=== PATIENT | male | born 1950 | race Caucasian/White ===

== ENCOUNTER → 2017-04-30 | Outpatient (CLI) | payer MEDICARE ==
[~2017-04-30] VITALS: Ht 170.2 cm; Wt 93.0 kg
[~2017-04-30] MED LIST: CATHETER FLUSH 10 ML SYR IV PRN; DZPM2T; HYDROCODONE/APAP; IBP200T; [UNRECOGNIZED DRUG - CODE]
== END ==
LOC: CARD 06:45
PROVIDERS: ATTEND Internal Medicine
DX: R07.9 Chest pain, unspecified (principal)

== ENCOUNTER → 2017-05-06 | Outpatient (CLI) | payer MEDICARE ==
[~2017-05-06] VITALS: Ht 170.2 cm; Wt 93.0 kg
[2017-05-06 08:14] VITALS: BP 148/77
--- NOTE | 2017-05-06 22:06 | STRESS TEST ---
DATE OF SERVICE: 05/06/2017 NUCLEAR MYOVIEW STRESS TEST REFERRING PHYSICIAN: Leanne Buitrago DO SUMMARY: The patient was injected with 10.35 mCi of technetium-99 Myoview and the resting images were obtained. With peak stress level, a 30.9 mCi of technetium-99 Myoview were injected and the stress images were acquired. The resting and stressed images were reviewed and compared in the short axis, horizontal long axis and vertical long axis views. Review of the images showed diaphragmatic attenuation with mild decreased uptake at the mid to apical inferior wall with no significant reversibility. SSS is 0. TID value is 0.93. On the gated images, the left ventricle appeared to be normal size with normal contractility. Calculated ejection fraction 54%. CONCLUSION: 1. Diaphragmatic attenuation with typical male pattern. No significant ischemia was noted. 2. Normal left ventricular size with normal contractility. Calculated ejection fraction 54%. 3. Test was supervised by Dr. Leanne Buitrago. Job ID: [id number] DocumentID: [id number] Dictated Date: 05/06/2017 14:18:52 Sales And Marketing Agent Date: 05/06/2017 17:41:06 Dictated By: ANUJA KNIGHT MD
== END ==
LOC: CARD 06:42
PROVIDERS: ATTEND Internal Medicine
DX: R07.9 Chest pain, unspecified (principal)
CPT/HCPCS: 78452; 93017

== ENCOUNTER → 2017-05-21 | Outpatient (CLI) | payer MEDICARE ==
[~2017-05-21] MED LIST changes: -CATHETER FLUSH 10 ML SYR IV PRN
== END ==
LOC: CARD 10:49
PROVIDERS: ATTEND Internal Medicine
DX: R07.9 Chest pain, unspecified (principal)
CPT/HCPCS: 93306

== ENCOUNTER → 2018-04-22 | Outpatient (CLI) | payer MEDICARE, OTHER ==
[2018-04-22 07:02] LABS: BASOPHILS % (AUTO) 0 % (0-10); EOSINOPHILS # (AUTO) 0.2 10^3/uL (0.0-0.3); EOSINOPHILS % (AUTO) 4 % (0-10); HEMATOCRIT 48 % (40-54); HEMOGLOBIN 17.1 G/DL (13.3-17.7); LYMPHOCYTES # (AUTO) 1.3 X 10^3 (1.0-4.0); LYMPHOCYTES % (AUTO) 21 % (12-44); MEAN CORPUSCULAR HEMOGLOBIN 32 PG (25-34); MEAN CORPUSCULAR HGB CONC 36 G/DL (32-36); MEAN CORPUSCULAR VOLUME 90 FL (80-99); MEAN PLATELET VOLUME 9.4 FL (7.4-10.4); MONOCYTES # (AUTO) 0.5 X 10^3 (0.0-1.0); MONOCYTES % (AUTO) 8 % (0-12); NEUTROPHILS # (AUTO) 4.2 X 10^3 (1.8-7.8); NEUTROPHILS % (AUTO) 67 % (42-75); PLATELET COUNT 189 10^3/uL (130-400); RED BLOOD COUNT 5.33 10^6/uL (4.35-5.85); RED CELL DISTRIBUTION WIDTH 12.6 % (10.0-14.5); WHITE BLOOD COUNT 6.2 10^3/uL (4.3-11.0)
[2018-04-22 07:04] LABS: BILIRUBIN,URINE NEGATIVE (NEGATIVE); CLARITY,URINE CLEAR; COLOR,URINE YELLOW; GLUCOSE, URINE (UA) NEGATIVE (NEGATIVE); KETONES,URINE NEGATIVE (NEGATIVE); LEUKOCYTE ESTERASE ,URINE NEGATIVE (NEGATIVE); NITRITE,URINE NEGATIVE (NEGATIVE); PH,URINE 5 (5-9); PROTEIN,URINE NEGATIVE (NEGATIVE); UROBILINOGEN,URINE NORMAL (NORMAL)
[2018-04-22 07:26] LABS: ALANINE AMINOTRANSFERASE 21 U/L (0-55); ALBUMIN 4.1 GM/DL (3.2-4.5); ALKALINE PHOSPHATASE 65 U/L (40-136); BILIRUBIN,TOTAL 0.7 MG/DL (0.1-1.0); BUN/CREATININE RATIO 12; CALCIUM 9.7 MG/DL (8.5-10.1); CARBON DIOXIDE 21 MMOL/L (21-32); CHLORIDE 108 MMOL/L (98-107); CREATININE SERUM 1.09 MG/DL (0.60-1.30); GFR ESTIMATED > 60; GLUCOSE 99 MG/DL (70-105); POTASSIUM 3.7 MMOL/L (3.6-5.0); SODIUM 141 MMOL/L (135-145); TOTAL PROTEIN 7.1 GM/DL (6.4-8.2)
[2018-04-22 07:38] LABS: BACTERIA,URINE NEGATIVE /HPF; SQUAMOUS EPITHELIAL CELL,UR 0-2 /HPF
[2018-04-22 07:43] LABS: ERYTHROCYTE SEDIMENTATION RATE 1 MM/HR (0-30)
--- NOTE | 2018-04-22 08:26 | Diagnostic Imaging Report ---
PROCEDURE: CT urinary tract, rule out kidney stone. TECHNIQUE: Multiple contiguous axial images were obtained through the abdomen and pelvis without the use of intravenous contrast. INDICATION: Right side pelvic pain. COMPARISON: Comparison is made with prior CT from 01/23/2010. FINDINGS: Imaging through the lung bases demonstrates a stable 5 mm nodule in the posterior lateral right lower lobe since exam from 2009. A cyst near the dome of the liver previous noted has increased in size, now measuring 4.3 cm AP x 4.2 cm transverse compared with 2.5 cm x 2.4 cm. No new liver mass is identified. The gallbladder is unremarkable. The pancreas and spleen are unremarkable. No adrenal mass is detected. No renal calculi or hydronephrosis is identified. The aorta is normal in caliber. The small and large bowel loops are normal in caliber. There is no ascites. The appendix is unremarkable. The bladder is decompressed and does show some moderate wall thickening which may be partly owing to incomplete distention. Prostate is enlarged measuring 5.1 cm AP x 6.2 cm transverse. This has increased since prior exam. The bony structures are nonacute. IMPRESSION: 1. Increase in size of right lobe liver cyst when compared with exam from 01/23/2010. 2. No evidence of urinary tract calculi or obstruction. 3. Prostatomegaly. 4. Bladder wall thickening. This could be owing to incomplete distention, however, cystitis or bladder outlet obstruction could produce this appearance. No other significant abnormality is detected. Dictated by: Dictated on workstation # [id number]
== END ==
LOC: RAD 06:40
PROVIDERS: ATTEND Internal Medicine
DX: K76.89 Other specified diseases of liver (principal); N40.1 Benign prostatic hyperplasia with lower urinary tract symptoms; N32.89 Other specified disorders of bladder
CPT/HCPCS: 36415; 74176; 80053; 81000; 85025; 85652

== ENCOUNTER 2019-01-31 10:52 | Emergency (ER) | payer MEDICARE, OTHER ==
[~2019-01-31] VITALS: Ht 170.2 cm; Wt 90.7 kg
--- NOTE | 2019-01-31 11:06 | ED Neck-Back Pain/Injury ---
General Stated Complaint: NECK PAIN Source of Information: Patient Exam Limitations: No Limitations History of Present Illness Date Seen by Provider: Jan 31, 2019 Time Seen by Provider: 11:04 Initial Comments To ER per private vehicle with reports of neck pain. He is unable to turn his head or flex chin to chest. This began on 01/26/19. Prior to that he had some low back pain, went to the chiropractor and got "adjusted". Chiropractor also adjusted his neck. A few days after seeing the chiropractor he developed some stiffness in his neck. Prior neck surgery by Dr. Valencia at [facility] several years ago. Denies any radiculopathy, he did have some pain down the left arm that seems to have been alleviated since seeing a chiropractor O Dr. Buitrago last week, given prednisone and Valium, denies improvement yet. No fevers or chills. Location: C-Spine Timing/Duration: 1 Week Severity: Moderate Pain/Injury Location: Neck Modifying Factors: Worse With Movement Allergies and Home Medications Allergies Coded Allergies: No Known Drug Allergies (Verified Allergy, Unknown, 06/02/08) Patient Home Medication List Home Medication List Reviewed: Yes Review of Systems Constitutional: see HPI EENTM: see HPI Respiratory: no symptoms reported Cardiovascular: no symptoms reported Genitourinary: no symptoms reported Musculoskeletal: see HPI, neck pain Skin: no symptoms reported Psychiatric/Neurological: No Symptoms Reported Past Ccapgph-Vrcyao-Fcymjk Hx Past Medical History Reproductive Disorders: No Physical Exam Vital Signs Vital Signs - First Documented 01/31/19 11:01 Temp 97.5 Pulse 56 Resp 17 B/P (MAP) 138/71 (93) Pulse Ox 98 O2 Delivery Room Air Capillary Refill : Height, Weight, BMI Height: 5'7.00" Weight: 205lbs. 0.0oz. 92.833307re; 32.1 BMI Method: General Appearance: No Apparent Distress, WD/WN HEENT: PERRL/EOMI, TMs Normal, Other (instead of turning head either direction to look at me he turns his whole upper body. Keep his head facing forward.) Neck: Full Range of Motion, Normal Inspection, Other (does have some tenderness to the left posterior side of his neck but there is no palpable abnormality) Respiratory: No Accessory Muscle Use, No Respiratory Distress Gastrointestinal: Normal Bowel Sounds, Non Tender, Soft Extremity: Normal Capillary Refill, Normal Inspection Neurologic/Psychiatric: Alert, Oriented x3 Skin: Normal Color, Warm/Dry Progress/Results/Core Measures Results/Orders My Orders Orders - BELEM FLORES APRN Ct Cervical Spine Wo (01/31/19 11:03) Ketorolac Injection (Toradol Injection) (01/31/19 11:15) Orphenadrine Injection (Norflex Injectio (01/31/19 11:15) Medications Given in ED Current Medications Medications Dose Ordered Sig/Anthony Route Start Time Stop Time Status Last Admin Dose Admin Ketorolac Tromethamine 60 mg ONCE ONCE IM 01/31/19 11:15 01/31/19 11:16 DC 01/31/19 11:15 60 MG Orphenadrine Citrate 60 mg ONCE ONCE IM 01/31/19 11:15 01/31/19 11:16 DC 01/31/19 11:15 60 MG Vital Signs/I&O 01/31/19 11:01 Temp 97.5 Pulse 56 Resp 17 B/P (MAP) 138/71 (93) Pulse Ox 98 O2 Delivery Room Air Departure Impression Primary Impression: Torticollis, acute Disposition: HOME, SELF-CARE Condition: Stable Departure-Patient Inst. Decision time for Depature: 11:06 Referrals: GAVIN BUITRAGO DO (PCP/Family) Primary Care Physician Patient Instructions: Torticollis, Adult Add. Discharge Instructions: 1. STop the diazepam. Start the hydrocodone and norflex as directed for pain control. Follow up with Dr Buitrago Scripts Methocarbamol (Robaxin-750) 750 Mg Tablet 750 MG PO Q6H PRN for PAIN-MODERATE, #10 TAB Prov: BELEM FLORES APRN 01/31/19 Hydrocodone Bit/Acetaminophen (Hydrocodone/Acetaminophen 5/325mg Tablet) 1 Tab Tab 1 EACH PO Q4-6HR PRN for PAIN-MODERATE MDD 10 for 3 Days, #14 TAB Prov: BELEM FLORES APRN 01/31/19 BELEM FLORES APRN Jan 31, 2019 11:06
[2019-01-31] MEDS ORDERED: KETOROLAC 30 MG/ML VIAL IM ONE (11:15)
[2019-01-31] MEDS ORDERED: ORPHENADRINE 60 MG/2 ML (NORFLEX) AMP IM ONE (11:15)
--- NOTE | 2019-01-31 12:24 | Diagnostic Imaging Report ---
CLINICAL INDICATION: Patient has left-sided neck pain. Patient went to chiropractor last week, still not getting better. EXAM: CT scan of the cervical spine performed without IV contrast with sagittal and coronal reformatted images. Auto Exposure Controls were utilized during the CT exam to meet ALARA standards for radiation dose reduction. COMPARISON: None. FINDINGS: There is C5 through C7 anterior cervical disc fusion. There is solid intervertebral bony bridging/fusion at C5-C6 level. There are small areas of intervertebral bony bridging/fusion at C6-C7 level. There is a small area of lucency about the tip of the left C7 screw which extends at endplate and superimpose Schmorl's node can be completely excluded. Otherwise, there is no evidence of hardware fracture or osteolysis. There is note of slight backing out of the right C7 screw, but unknown if this is stable chronic appearance for this screw. There is no osteolysis or other abnormality seen in the region. There is no acute cervical spine fracture. There are hypertrophic spurs seen throughout the cervical spine and multilevel facet arthropathy which is most pronounced involving the left C2 through C5 levels with hypertrophic changes. Visualized upper lung ashton are clear. C1-C2: There are hypertrophic spurs involving the atlanto-odontoid interval anteriorly. There is no significant central canal narrowing. C2-C3: There is suggestion of diffuse disc bulge with partially calcified left paracentral disc herniation. There is severe left facet arthropathy/hypertrophy and mild right facet arthropathy. There is at least moderate right neural foramen narrowing and rfhh-jr-wjywvemx left neural foramen narrowing. There is at least moderate central canal stenosis. C3-C4: There is suggestion of diffuse disc bulge including partially calcified posterior disc extrusion/herniation. There is severe left facet arthropathy/hypertrophy and mild right facet arthropathy. There is bilateral uncinate spurs. There is moderate right neural foramen narrowing and severe left neural foramen narrowing. There is hebf-im-ivbfjugu central canal narrowing. C4-C5: There is grade 1 anterolisthesis of C4 on C5. There is severe left facet arthropathy/hypertrophy and bilateral uncinate spurs. There is mild right facet arthropathy. There is reyr-mg-tlqgajdd right neural foramen narrowing and severe left neural foramen narrowing. There is suggestion of posterior disc herniation with at least mild central canal narrowing. C5-C6: There is moderate bilateral facet arthropathy. There is no significant right neural foramen narrowing. There is nmsw-eu-etultsim left neural foramen narrowing. C6-C7: There is posterior vertebral body prominence which causes mild impression upon the central canal anteriorly. There is severe right neural foramen narrowing due to uncinate spurs. There is no significant left neural foramen narrowing. C7-T1: There is no significant central canal or neural foramen narrowing. IMPRESSION: 1: There is no acute cervical spine fracture or dislocation. 2: There is C5 through C7 anterior cervical disc fusion. There is a corticated lucent area adjacent to the tip of the left C7 screw. This may possibly be associated with a Schmorl's node. Otherwise, there is no acute-appearing hardware complication. There is solid intervertebral bony bridging/fusion at the C5-C6 and C6-C7 levels. 3: Multilevel cervical spine degenerative disc disease which is worse at the C2 through C5 levels. 4: Grade 1 anterolisthesis of C4 on C5. Dictated by: Dictated on workstation # [id number]
[2019-01-31] MEDS ORDERED: METH-313 PO (12:33)
[2019-01-31] MEDS ORDERED: ACHD5005 PO (12:33)
[2019-01-31 12:37] VITALS: BP 133/70
== END 2019-01-31 12:37 | disposition home or self-care (01) ==
LOC: EDUNIT# 10:52 → ER 10:53
DX: M43.6 Torticollis (principal)
CPT/HCPCS: 72125

== ENCOUNTER 2019-02-06 14:09 | Emergency (ER) | payer MEDICARE, OTHER ==
[~2019-02-06] VITALS: Ht 170.2 cm; Wt 90.7 kg
[~2019-02-06 14:09] MED LIST changes: +ACHD5005 PO; +METH-313 PO
[2019-02-06] MEDS ORDERED: fentaNYL INJECTION 100 MCG/2 ML AMP IVP ONE (14:30)
[2019-02-06] MEDS ORDERED: KETOROLAC 30 MG/ML VIAL IVP ONE (14:30)
--- NOTE | 2019-02-06 14:30 | ED Back Pain ---
General Chief Complaint: Abdominal/GI Problems Stated Complaint: LOWER BACK L SIDE PAIN X 4 WKS Source of Information: Patient Exam Limitations: No Limitations History of Present Illness Date Seen by Provider: Feb 06, 2019 Time Seen by Provider: 14:29 Initial Comments Left flank pain x4 weeks. Was seen here last week for torticollis. Given robaxin and hydrocodone and has had improvement in the neck. has persistent left flank pain. No nausea or vomiting constipation or diarrhea. Location: Lumbar Spine Timing/Duration: Other (4 weeks ) Severity: Moderate Method of Injury: Unknown Associated Symptoms: denies symptoms; No fever Allergies and Home Medications Allergies Coded Allergies: No Known Drug Allergies (Verified Allergy, Unknown, 06/02/08) Home Medications Hydrocodone Bit/Acetaminophen 1 Tab Tab, 1 EACH PO Q4-6HR PRN for PAIN-MODERATE Prescribed by: BELEM FLORES on 01/31/19 1233 Methocarbamol 750 Mg Tablet, 750 MG PO Q6H PRN for PAIN-MODERATE Prescribed by: BELEM FLORES on 01/31/19 1233 Patient Home Medication List Home Medication List Reviewed: Yes Review of Systems Constitutional: see HPI EENTM: see HPI Respiratory: no symptoms reported Cardiovascular: no symptoms reported Genitourinary: no symptoms reported Musculoskeletal: no symptoms reported Skin: no symptoms reported Psychiatric/Neurological: No Symptoms Reported Past Omulkuv-Mchwny-Ufmxpp Hx Patient Social History Recent Foreign Travel: No Contact w/Someone Who Travel: No Recent Hopitalizations: Yes Immunizations Up To Date Tetanus Booster (TDap): Unknown PED Vaccines UTD: Yes Past Medical History Surgeries: Yes (PLATES IN NECK,APPY,BUNION REMOVED FROM FOOT) Abdominal, Appendectomy, Orthopedic Respiratory: No Cardiac: Yes Hypertension Neurological: No Reproductive Disorders: No Sexually Transmitted Disease: No Gastrointestinal: No Musculoskeletal: Yes Endocrine: No Cancer: No Psychosocial: No Blood Disorders: No Physical Exam Vital Signs Vital Signs - First Documented 02/06/19 14:25 Temp 97.9 Pulse 58 Resp 15 B/P (MAP) 135/76 (95) Pulse Ox 98 O2 Delivery Room Air Capillary Refill : Height, Weight, BMI Height: 5'7.00" Weight: 200lbs. 0.0oz. 90.001512pv; 32.1 BMI Method:Stated General Appearance: No Apparent Distress, WD/WN HEENT: PERRL/EOMI, TMs Normal Neck: Full Range of Motion, Normal Inspection Respiratory: No Accessory Muscle Use, No Respiratory Distress Gastrointestinal: Normal Bowel Sounds, Non Tender, Soft Extremity: Normal Capillary Refill, Normal Inspection Neurologic/Psychiatric: Alert, Oriented x3 Skin: Normal Color, Warm/Dry Progress/Results/Core Measures Results/Orders Lab Results Laboratory Tests Test 02/06/19 14:25 02/06/19 14:40 Range/Units Urine Color YELLOW Urine Clarity CLEAR Urine pH 5 5-9 Urine Specific Malone 1.010 L 1.016-1.022 Urine Protein NEGATIVE NEGATIVE Urine Glucose (UA) NEGATIVE NEGATIVE Urine Ketones NEGATIVE NEGATIVE Urine Nitrite NEGATIVE NEGATIVE Urine Bilirubin NEGATIVE NEGATIVE Urine Urobilinogen NORMAL NORMAL MG/DL Urine Leukocyte Esterase NEGATIVE NEGATIVE Urine RBC (Auto) NEGATIVE NEGATIVE Urine RBC NONE /HPF Urine WBC NONE /HPF Urine Crystals NONE /LPF Urine Bacteria TRACE /HPF Urine Casts NONE /LPF Urine Mucus NEGATIVE /LPF Urine Culture Indicated NO White Blood Count 8.6 4.3-11.0 10^3/uL Red Blood Count 5.37 4.35-5.85 10^6/uL Hemoglobin 17.0 13.3-17.7 G/DL Hematocrit 49 40-54 % Mean Corpuscular Volume 91 80-99 FL Mean Corpuscular Hemoglobin 32 25-34 PG Mean Corpuscular Hemoglobin Concent 35 32-36 G/DL Red Cell Distribution Width 12.5 10.0-14.5 % Platelet Count 194 130-400 10^3/uL Mean Platelet Volume 9.7 7.4-10.4 FL Neutrophils (%) (Auto) 77 H 42-75 % Lymphocytes (%) (Auto) 14 12-44 % Monocytes (%) (Auto) 7 0-12 % Eosinophils (%) (Auto) 2 0-10 % Basophils (%) (Auto) 0 0-10 % Neutrophils # (Auto) 6.6 1.8-7.8 X 10^3 Lymphocytes # (Auto) 1.2 1.0-4.0 X 10^3 Monocytes # (Auto) 0.6 0.0-1.0 X 10^3 Eosinophils # (Auto) 0.2 0.0-0.3 10^3/uL Basophils # (Auto) 0.0 0.0-0.1 10^3/uL Sodium Level 140 135-145 MMOL/L Potassium Level 3.7 3.6-5.0 MMOL/L Chloride Level 105 98-107 MMOL/L Carbon Dioxide Level 21 21-32 MMOL/L Anion Gap 14 5-14 MMOL/L Blood Urea Nitrogen 13 7-18 MG/DL Creatinine 1.06 0.60-1.30 MG/DL Estimat Glomerular Filtration Rate > 60 BUN/Creatinine Ratio 12 Glucose Level 99 70-105 MG/DL Calcium Level 9.8 8.5-10.1 MG/DL Corrected Calcium 9.6 8.5-10.1 MG/DL Total Bilirubin 0.9 0.1-1.0 MG/DL Aspartate Amino Transf (AST/SGOT) 22 5-34 U/L Alanine Aminotransferase (ALT/SGPT) 31 0-55 U/L Alkaline Phosphatase 86 40-136 U/L Total Protein 7.7 6.4-8.2 GM/DL Albumin 4.2 3.2-4.5 GM/DL My Orders Orders - BELEM FLORES [employer]ATION[employer] EXECUTIVE Cbc With Automated Diff (02/06/19 14:27) Comprehensive Metabolic Panel (02/06/19 14:27) Ua Culture If Indicated (02/06/19 14:27) Ed Iv/Invasive Line Start (02/06/19 14:27) Ct Abd/Pelvis Wo(Kidney Stone) (02/06/19 14:27) Ketorolac Injection (Toradol Injection) (02/06/19 14:30) Fentanyl Injection (Sublimaze Injection (02/06/19 14:30) Medications Given in ED Current Medications Medications Dose Ordered Sig/Anthony Route Start Time Stop Time Status Last Admin Dose Admin Fentanyl Citrate 50 mcg ONCE ONCE IVP 02/06/19 14:30 02/06/19 14:31 DC 02/06/19 14:46 50 MCG Ketorolac Tromethamine 15 mg ONCE ONCE IVP 02/06/19 14:30 02/06/19 14:31 DC 02/06/19 14:46 15 MG Vital Signs/I&O 02/06/19 14:25 Temp 97.9 Pulse 58 Resp 15 B/P (MAP) 135/76 (95) Pulse Ox 98 O2 Delivery Room Air Departure Communication (Admissions) discussed with pt the need for possible MRI lumbar spine. Impression Primary Impression: Low back pain Qualified Codes: M54.5 - Low back pain Disposition: 01 HOME, SELF-CARE Condition: Stable Departure-Patient Inst. Decision time for Depature: 15:33 Referrals: GAVIN LAWRENCE DO (PCP/Family) Primary Care Physician Patient Instructions: NO INSTRUCTIONS GIVEN Add. Discharge Instructions: 1. continue current medications. 2. Follow up with your doctor this week. Return to ER for any worsening. All discharge instructions reviewed with patient and/or family. Voiced understanding. Copy Copies To 1: GAVIN LAWRENCE PETER J APRN Feb 06, 2019 14:30
[2019-02-06 14:44] LABS: BASOPHILS % (AUTO) 0 % (0-10); EOSINOPHILS # (AUTO) 0.2 10^3/uL (0.0-0.3); EOSINOPHILS % (AUTO) 2 % (0-10); HEMATOCRIT 49 % (40-54); LYMPHOCYTES # (AUTO) 1.2 X 10^3 (1.0-4.0); LYMPHOCYTES % (AUTO) 14 % (12-44); MEAN CORPUSCULAR HEMOGLOBIN 32 PG (25-34); MEAN CORPUSCULAR HGB CONC 35 G/DL (32-36); MEAN CORPUSCULAR VOLUME 91 FL (80-99); MEAN PLATELET VOLUME 9.7 FL (7.4-10.4); MONOCYTES # (AUTO) 0.6 X 10^3 (0.0-1.0); MONOCYTES % (AUTO) 7 % (0-12); NEUTROPHILS # (AUTO) 6.6 X 10^3 (1.8-7.8); NEUTROPHILS % (AUTO) 77 % (42-75); PLATELET COUNT 194 10^3/uL (130-400); RED CELL DISTRIBUTION WIDTH 12.5 % (10.0-14.5); WHITE BLOOD COUNT 8.6 10^3/uL (4.3-11.0)
[2019-02-06 14:45] LABS: BILIRUBIN,URINE NEGATIVE (NEGATIVE); CLARITY,URINE CLEAR; COLOR,URINE YELLOW; GLUCOSE, URINE (UA) NEGATIVE (NEGATIVE); KETONES,URINE NEGATIVE (NEGATIVE); LEUKOCYTE ESTERASE ,URINE NEGATIVE (NEGATIVE); NITRITE,URINE NEGATIVE (NEGATIVE); PH,URINE 5 (5-9); PROTEIN,URINE NEGATIVE (NEGATIVE); UROBILINOGEN,URINE NORMAL (NORMAL)
[2019-02-06 14:55] LABS: BACTERIA,URINE TRACE /HPF
[2019-02-06 15:14] LABS: ALANINE AMINOTRANSFERASE 31 U/L (0-55); ALBUMIN 4.2 GM/DL (3.2-4.5); ALKALINE PHOSPHATASE 86 U/L (40-136); BILIRUBIN,TOTAL 0.9 MG/DL (0.1-1.0); BUN/CREATININE RATIO 12; CALCIUM 9.8 MG/DL (8.5-10.1); CARBON DIOXIDE 21 MMOL/L (21-32); CHLORIDE 105 MMOL/L (98-107); CREATININE SERUM 1.06 MG/DL (0.60-1.30); GFR ESTIMATED > 60; GLUCOSE 99 MG/DL (70-105); POTASSIUM 3.7 MMOL/L (3.6-5.0); SODIUM 140 MMOL/L (135-145); TOTAL PROTEIN 7.7 GM/DL (6.4-8.2)
--- NOTE | 2019-02-06 15:37 | NUR ---
Pt sitting up in bed on phone at this time. Pt reports the pain has resolved at this time.
--- NOTE | 2019-02-06 15:59 | Diagnostic Imaging Report ---
PROCEDURE: CT urinary tract, rule out kidney stone. TECHNIQUE: Multiple contiguous axial images were obtained through the abdomen and pelvis without the use of intravenous contrast. Auto Exposure Controls were utilized during the CT exam to meet ALARA standards for radiation dose reduction. INDICATION: Left flank pain. FINDINGS: The previous CT abdomen/pelvis exam of 01/23/2010 noted partial obstruction of the right collecting system due to a 3 mm calculus. On this study however, there is no evidence for nephrolithiasis or urolithiasis of either collecting system. The kidneys do not appear to be obstructed either. The urinary bladder is grossly unremarkable. The prostate gland is enlarged measuring 6.2 cm in maximum transverse diameter. On the prior exam, the gland measured 5.2 cm (normal gland size 5 cm or less). As noted on the previous study, there is diverticulosis of the sigmoid and descending colon. The diverticula in the region of the junction of the sigmoid and descending colon are more prominent and more numerous than on the prior exam but there is no evidence for acute diverticulitis. The appendix was not well-visualized but there are no indirect signs of acute appendicitis. The cyst within the liver seen previously has increased in size and now measures 4.7 cm as opposed to 2.9 cm on the prior exam. This cyst shows a generally benign appearance. The liver is otherwise unremarkable. The spleen, pancreas, adrenals, gallbladder, aorta and inferior vena cava are unremarkable for an acute abnormality. The stomach is not well distended and consequently difficult to assess. The lung bases are clear. The bone windows shows no sign of a fracture or of a destructive lesion. IMPRESSION: 1. There is no evidence for an acute abnormality of the abdomen or pelvis. In particular, there is no sign of recurrent obstruction of the left collecting system by calculus. 2. There has been increase in the diverticula involving the sigmoid and descending colon but there is no sign of acute diverticulitis. 3. The prostate gland has increased in size since the prior study. Clinical followup is recommended. Dictated by: Dictated on workstation # [id number]
[2019-02-06 16:10] VITALS: BP 109/69
== END 2019-02-06 16:11 | disposition home or self-care (01) ==
LOC: EDUNIT# 14:09 → ER 14:11
DX: M54.5 Low back pain (principal); I10 Essential (primary) hypertension; Z90.49 Acquired absence of other specified parts of digestive tract
CPT/HCPCS: 36415; 74176; 80053; 81000; 85025

== ENCOUNTER → 2019-08-04 | Outpatient (CLI) | payer MEDICARE, OTHER ==
--- NOTE | 2019-08-04 16:43 | Diagnostic Imaging Report ---
PROCEDURE: US right lower extremity venous. TECHNIQUE: Multiple real-time grayscale images were obtained over the right lower extremity in various projections. Additional spectral analysis and color Doppler duplex images were also obtained. INDICATION: Right calf pain The veins of the right leg have good color filling and compressibility. There is phasic flow and normal response to augmentation. IMPRESSION: Negative venous Doppler right leg Dictated by: Dictated on workstation # [id number]
== END ==
LOC: RAD 15:57
PROVIDERS: ATTEND Internal Medicine
DX: R60.0 Localized edema (principal)

== ENCOUNTER 2019-11-08 16:21 | Emergency (ER) | payer MEDICARE, OTHER ==
[~2019-11-08] VITALS: Ht 170 cm; Wt 91.0 kg
[2019-11-08] MEDS ORDERED: oxyCODONE/APAP 5/325MG (PERCOCET 5) TABLET PO ONE (17:00)
[2019-11-08] MEDS ORDERED: ORPHENADRINE 60 MG/2 ML (NORFLEX) AMP IM ONE (17:00)
[2019-11-08] MEDS ORDERED: KETOROLAC 30 MG/ML VIAL IM ONE (17:00)
[2019-11-08] MEDS ORDERED: OXYC1TAB87 PO (17:57)
[2019-11-08] MEDS ORDERED: CYCL10TA9 PO (17:57)
[2019-11-08] MEDS ORDERED: PRD20T PO (17:57)
--- NOTE | 2019-11-08 17:57 | ED Back Pain ---
General Chief Complaint: Back Problems Stated Complaint: BACK PAIN Nursing Triage Note: PT WITH HX OF BACK PAIN FOR ABOUT A YEAR PRESENTS WITH LOW BACK PAIN THAT RADIATES TO RT HIP AND DOWN TO HIS KNEE. CURRENT PROBLEM STARTED A COUPLE DAYS AGO. Nursing Sepsis Screen: No Definite Risk Source of Information: Patient Exam Limitations: No Limitations History of Present Illness Date Seen by Provider: November 08, 2019 Time Seen by Provider: 16:45 Initial Comments This 69-year-old gentleman presents to the emergency room by private vehicle with complaints of worsening lower back pain. This pain seems more concentrated on the right side and radiates to the right hip and thigh. He denies any true weakness of the lower extremities or bowel or bladder dysfunction. He has prior history of cervical spine problems and had surgery with Dr. Valencia in [place]. This morning he took hydrocodone around 06:15 but is still having difficulty functioning with his ADLs because of the pain. There was no acute injury that prompted this pain. Allergies and Home Medications Allergies Coded Allergies: No Known Drug Allergies (Verified Allergy, Unknown, 06/02/08) Home Medications Cyclobenzaprine HCl 10 Mg Tablet, 10 MG PO TID Prescribed by: NATAN KONG on 11/08/191756 Hydrocodone Bit/Acetaminophen 1 Tab Tab, 1 EACH PO Q4-6HR PRN for PAIN-MODERATE Prescribed by: BELEM FLORES on 01/31/19 123 Methocarbamol 750 Mg Tablet, 750 MG PO Q6H PRN for PAIN-MODERATE Prescribed by: BELEM FLORES on 01/31/19 123 Oxycodone HCl/Acetaminophen 1 Each Tablet, 1 TAB PO Q4H PRN for PAIN- BREAKTHROUGH Prescribed by: NATAN KONG on 11/08/191756 Prednisone 20 Mg Tab, 40 MG PO DAILY Prescribed by: NATAN KONG on 11/08/191756 Patient Home Medication List Home Medication List Reviewed: Yes Review of Systems Constitutional: no symptoms reported EENTM: no symptoms reported Respiratory: no symptoms reported Cardiovascular: no symptoms reported Gastrointestinal: no symptoms reported Genitourinary: no symptoms reported Musculoskeletal: see HPI Skin: no symptoms reported Psychiatric/Neurological: No Symptoms Reported Past [id number] Hx Past Med/Social Hx: Reviewed Nursing Past Med/Soc Hx Patient Social History Alcohol Use: Occasionally Uses Alcohol Beverage of Choice: Beer, Whiskey, [place] Recreational Drug Use: No Smoking Status: Never a Smoker 2nd Hand Smoke Exposure: No Recent Foreign Travel: No Contact w/Someone Who Travel: No Recent Infectious Disease Expo: No Recent Hopitalizations: No Physical Abuse: No Sexual Abuse: No Mistreated: No Fear: No Immunizations Up To Date Tetanus Booster (TDap): Unknown PED Vaccines UTD: Yes Seasonal Allergies Seasonal Allergies: No Past Medical History Surgeries: Yes (PLATES IN NECK,APPY,BUNION REMOVED FROM FOOT) Abdominal, Appendectomy, Orthopedic Respiratory: No Cardiac: Yes Hypertension Neurological: No Reproductive Disorders: No Sexually Transmitted Disease: No Gastrointestinal: No Musculoskeletal: Yes Chronic Back Pain Endocrine: No HEENT: No Cancer: No Psychosocial: No Blood Disorders: No Physical Exam Vital Signs Vital Signs - First Documented 11/08/19 16:38 Temp 37.1 Pulse 57 Resp 20 B/P (MAP) 160/74 (102) Pulse Ox 98 O2 Delivery Room Air Capillary Refill : Less Than 3 Seconds Height, Weight, BMI Height: 5'7.00" Weight: 200lbs. 0.0oz. 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 as Tested, Abnormal Cerebellar Tests Skin: Normal Color, Warm/Dry Progress/Results/Core Measures Results/Orders My Orders Orders - NATAN ROQUE MD Ketorolac Injection (Toradol Injection) (11/08/19 17:00) Orphenadrine Injection (Norflex Injectio (11/08/19 17:00) Oxycodone/Apap 5/325mg Tablet (Percocet (11/08/19 17:00) Medications Given in ED Vital Signs/I&O 5/26/20 5/26/20 5/26/20 5/26/20 16:38 17:06 17:06 18:04 Temp 37.1 37.1 37.1 37.1 Pulse 57 57 Resp 20 20 B/P (MAP) 160/74 (102) 160/74 (102) Pulse Ox 98 98 O2 Delivery Room Air Room Air Blood Pressure Mean: 102 Progress Progress Note : Progress Note Patient was treated with Norflex, Toradol, and Percocet with some improvement. We discussed next steps which might include physical therapy and/or imaging of the spine. He has already gone through physical therapy within the past year and states it did not improve his condition. He was prescribed Percocet, cyclobenzaprine, and prednisone for acute treatment. Departure Impression Primary Impression: Low back pain Qualified Codes: M54.41 - Lumbago with sciatica, right side Additional Impression: Lumbar radiculopathy Disposition: HOME, SELF-CARE Condition: Improved Departure-Patient Inst. Decision time for Depature: 17:53 Referrals: GAVIN LAWRENCE DO (PCP/Family) Primary Care Physician Patient Instructions: Low Back Pain in Adults, Radiculopathy Add. Discharge Instructions: You may take NSAID medications such as ibuprofen up to 600 mg every 6 hours as needed for pain. Add Percocet as prescribed for additional pain relief if needed. You may take a stool softener such as Colace purchased [id number] to prevent constipation from the Percocet. Use cyclobenzaprine as prescribed for muscle tension or spasms. Follow-up with your primary care provider and/or a spine surgeon as soon as possible. Return to the emergency room if you have worsening symptoms, especially if you develop a true weakness of your extremities or problems controlling bowels or bladder. All discharge instructions reviewed with patient and/or family. Voiced understanding. Scripts Prednisone (Prednisone) 20 Mg Tab 40 MG PO DAILY, #8 TAB Prov: NATAN ROQUE MD 11/08/19 Cyclobenzaprine HCl (Cyclobenzaprine HCl) 10 Mg Tablet 10 MG PO TID, #10 TAB Prov: NATAN ROQUE MD 11/08/19 Oxycodone HCl/Acetaminophen (Percocet 5-325 mg Tablet) 1 Each Tablet 1 TAB PO Q4H PRN for PAIN-BREAKTHROUGH MDD 6 TABS, #20 TAB Prov: NATAN ROQUE MD 11/08/19 Copy Copies To 1: GAVIN LAWRENCE JOSHUA T MD November 08, 2019 17:57
[2019-11-08 18:04] VITALS: BP 160/74
== END 2019-11-08 18:04 | disposition home or self-care (01) ==
LOC: EDUNIT# 16:21 → ER 16:22
DX: M54.16 Radiculopathy, lumbar region (principal)
CPT/HCPCS: 96372; 99284

== ENCOUNTER → 2019-11-11 | Outpatient (CLI) | payer MEDICARE, OTHER ==
[~2019-11-11] MED LIST changes: +CYCL10TA9 PO; +OXYC1TAB87 PO; +PRD20T PO
--- NOTE | 2019-11-11 10:32 | Diagnostic Imaging Report ---
PROCEDURE: MRI lumbar spine. TECHNIQUE: Multiplanar, multisequence MRI of the lumbar spine was performed without contrast. INDICATION: Low back pain. No prior studies are available for comparison. FINDINGS: Curvature of the lumbar spine is normal. There is minimal anterolisthesis of L4 on L5. Vertebral body heights are maintained. No acute compression fracture is seen. No geographic marrow lesion is detected. There is some generalized degenerative disc disease with variable desiccation and slight disc space narrowing, greatest L4-L5 level. Conus is unremarkable at the L1-L2 level. T12-L1: Central canal is widely patent. There are mild degenerative facet changes noted. Neural foramina are widely patent. L1-T2: Central canal remains widely patent. The neural foramina are widely patent. L2-L3: Mild facet changes are noted. The central canal is patent. No significant neural foraminal narrowing is seen. L3-L4: Mild ligamentous thickening and facet changes are noted. There is broad-based disc/osteophyte complex flattening the ventral thecal sac producing mild narrowing of the central canal. There is moderate narrowing of the lateral recesses bilaterally. There is also moderate narrowing bilateral neural foramina. L4-L5: Broad-based disc/osteophyte complex flattens the ventral thecal sac produces mild central canal narrowing. There are hypertrophic facet changes present. Significant bilateral lateral recess stenosis is noted. There is also moderate bilateral neural foraminal stenosis. L5-S1: Central canal is widely patent. Neural foramina demonstrate moderate narrowing. There is also moderate narrowing bilateral lateral recesses. Paraspinous tissues are unremarkable. IMPRESSION: Lumbar spondylosis with central canal, lateral recess and neural foraminal stenosis described level by level above. Dictated by: Dictated on workstation # [id number]
== END ==
LOC: RAD 09:07
PROVIDERS: ATTEND Internal Medicine
DX: M48.07 Spinal stenosis, lumbosacral region (principal); M47.816 Spondylosis without myelopathy or radiculopathy, lumbar region; M51.36 Other intervertebral disc degeneration, lumbar region
CPT/HCPCS: 72148

== ENCOUNTER 2021-11-16 22:35 | Emergency (ER) | payer MEDICARE, OTHER ==
[~2021-11-16 22:35] MED LIST changes: +CYCL10TA25 PO; -CYCL10TA9 PO
== END 2021-11-17 00:06 | disposition left against medical advice (07) ==
LOC: EDUNIT# 22:35 → ER 22:37
DX: M54.9 Dorsalgia, unspecified (principal)